=== PATIENT | male | born 1950 ===

== ENCOUNTER 2022-11-11 06:50 | Day surgery (SDC) | payer MEDICARE ==
[2022-10-29 14:31] VITALS: BP 110/65
[~2022-11-11] VITALS: Ht 172.7 cm; Wt 110.9 kg
--- NOTE | ~2022-11-11 | OR ---
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 PROCEDURE PERFORMED: Right total knee arthroplasty with Shaquille. GLOVE MAKER: Becky Regalado PA-C. ANESTHESIA: Spinal. BLOOD LOSS: 170 mL. IMPLANTS: Christy Triathlon size 5, 9 mm polyethylene and 35 mm patella. BRIEF HISTORY: Davi is a 72-year-old gentleman with progressive worsening of valgus deformity and severe pain. Risks and benefits of operative treatment were discussed with him and he elected to proceed. PROCEDURE IN DETAIL: Once consent was obtained, he was taken to the operating room after adequate anesthesia, was placed on operating room table. All downside pressure points well padded. Hip bump was placed on the right and the leg was prepped and draped in a standard sterile fashion. Knee was approached through standard anterior midline incision, carried through skin and subcutaneous tissue. A mid vastus arthrotomy was performed and the MCL was elevated as a sleeve to the posteromedial corner. The infrapatellar fat pad was excised and the anterior horns of the menisci were released. The ACL was transected. The PCL was found to be intact. The navigation computer array was then placed in the medial femoral condyle and in the proximal tibia. The leg was registered with the PATIENT NAME: DAVI KNOX OPERATIVE REPORT DATE OF : 48 REPORT #: [id number] PHYSICIAN: SIMÓN FISHER MD PCP: JERRELL CORONA DO REPORT IS CONFIDENTIAL AND NOT TO BE RELEASED WITHOUT AUTHORIZATION [facility] [address], [place] [address] Draft computer followed by the fine anatomic points of the knee. Varus valgus testing then demonstrated the ligamentous balance, which was good overall. We had to adjust the prosthesis just a touch. Once this was completed, the robot was brought in for straight cuts and two angled cuts were made with care taken to protect the patellar tendon and MCL. The bone remnants were removed as were any remaining osteophytes. The posterior osteophytes removed off the femur and meniscal remnants were removed. The trials were then positioned. Knee was taken through range of motion and found to be stable. The patella was cut, sized and drilled for a 35 mm patella. The distal femur was then drilled and the proximal tibia was finished using the keel punch. The bone was soft, so we elected to go ahead with a hybrid prosthesis. The bone was pulse lavaged and packed to the right dry Ray-Ashanti. The cement was mixed and reached proper consistency, was placed on the tibia and patella along with the corresponding bone. The tibia was impacted in position first and all excess cement was removed. The polyethylene was snapped into position and the femur was impacted. The knee was extended and nicely loaded. The patella was clamped into position again any remaining cement was removed. The clamp was left on until the cement was well set. The knee was then flexed. Any remaining overflow was removed. The knee was irrigated copiously with Surgiphor and normal saline. The periarticular soft tissue was injected with 100 mL ropivacaine Toradol mixture. The On-Q pain pump was percutaneously placed into the adductor canal from the suprapatellar pouch. The arthrotomy was then closed using a combination of #2 FiberWire and #2 Stratafix. The subcutaneous tissue was closed with 0 Stratafix, and the skin with 3-0 Stratafix. LiquiBand was applied. The wound was dressed with an Aquacel dressing, ABD and Ricky wrap. He tolerated the procedure well. All sponge, needle, and instrument counts were correct. Simón Fisher MD BA/MODL /[id number] Copies: ~ PATIENT NAME: DAVI KNOX OPERATIVE REPORT DATE OF : 48 REPORT #: [id number] PHYSICIAN: SIMÓN FISHER MD PCP: JERRELL CORONA DO REPORT IS CONFIDENTIAL AND NOT TO BE RELEASED WITHOUT AUTHORIZATION
[~2022-11-11 06:50] MED LIST: ALLEGRA-D 12 H1 EACH PO; ATORVASTATIN CA20 MG PO; BAYER CHEWABLE81 MG PO; FLOMAX0.4 MG PO; METFORMIN HCL500 MG PO; NAPROXEN CR500 MG PO; OLMESARTAN MEDO40 MG PO; VITAMIN D250000 UNIT PO
[2022-11-11 07:17] VITALS: BP 135/65
[2022-11-11] MEDS ORDERED: AFRIN15 ML NAS (07:23)
--- NOTE | 2022-11-11 09:39 | NUR ---
IN PT ROOM D/T DSAT WHEN PT FALLS ASLEEP. PT ON 95% RA, UPON FALLING ASLEEP DSAT TO 81%. PT NOW ON 4L OF O2 VIA NC. OCCASIONAL DSAT TO 84%. 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 ANNA MASON IN ROOM AT THIS TIME, NO NEW ORDERS AT THIS TIME. CALL LIGHT WITHIN REACH, SON AT BEDSIDE, CONTINUOUS PULSE OX IN PLACE. WILL CONTINUE TO MONITOR.
[2022-11-11] MEDS ORDERED: CELECOXIB200 MG PO (11:51)
[2022-11-11] MEDS ORDERED: OXYCODONE HCL5 MG PO (11:51)
[2022-11-11] MEDS ORDERED: XARELTO10 MG PO (11:51)
[2022-11-11] MEDS ORDERED: SENNA LAX8.6 MG PO (11:52)
--- NOTE | 2022-11-11 12:03 | NUR ---
11/11/22 1203 Tracie Dill 1156 PATIENT ARRIVES TO PACU RESTING WITH EYES CLOSED, OPENS EYES WITH VERBAL STIMULI, SLEEPING WHEN NOT STIMULATED. RESP EVEN AND UNLABORED, MASK AT 8 LITERS. 1202 OXYGEN MASK OFF. NC AT 4 LITERS.
[2022-11-11 12:25] VITALS: BP 113/49
--- NOTE | 2022-11-11 12:25 | NUR ---
PT ARRIVES TO UNIT VIA STRETCHER FROM PACU. REPORT RECIEVED FROM EBONIE JUSTICE. PT IS A&O X4, BOTH SONS AT BEDSIDE. PT REPORTS NO PAIN, NAUSEA, DIZZINESS, TINGLING, OR SOB. PT REPORTS NUMBNESS PRESENT IN BLE, SPINAL IS CURRENTLY AT KNEE LEVEL, AND PT IS ABLE TO MOVE LEGS/TOES. PT ARRIVES ON 4L OF O2 VIA NC, THIS RN TITRATION TO RA AND SPO2 VIA PULSE OX REMAINS AT 95%. DRESSING IS C/D/I, NO SIGNS OF BLEEDING AT THIS TIME. SKIN IS PINK/COOL/DRY W/CAP REFILL <3 SEC. ED HOSE, FOOT PUMPS, CRYO CUFF, ON-Q PUMP, AND HEEL PROTECTORS IN PLACE. PT IS TOLERATING CRACKERS, ICE WATER, AND APPLESAUCE AT THIS TIME. CALL LIGHT WITHIN REACH, NO FURTHER NEEDS AT THIS TIME.
[2022-11-11 13:19] VITALS: BP 114/45
--- NOTE | 2022-11-11 13:25 | NUR ---
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 PT IS A&O X4 W/ AND SON AT BEDSIDE. PT REPORTS NO PAIN, NAUSEA, DIZZINESS, NUMBNESS (TINGLING PRESENT IN BLE), OR SOB. PT ABLE TO MOVE TOES & LEGS W/OUT DIFFICULTY. SPINAL HAS RESOLVED AT THIS TIME. DRESSING REMAINS C/D/I, NO SIGNS OF BLEEDING AT THIS TIME. IV SITE IS WNL, 2ND DOSE OF TXA STARTED AT THIS TIME. SANDWICH HAS ARRIVED, PT IS NOW EATING W/OUT DIFFICULTY. PT O2 SATS AT 96% VIA RA. FOOT PUMPS, HEEL PROTECTORS, ED HOSE, CRYO CUFF, AND ON-Q PUMP IN PLACE. CALL LIGHT WITHIN REACH, NO FURTHER NEEDS AT THIS TIME.
--- NOTE | 2022-11-11 14:21 | NUR ---
PHYSICAL THERAPY IN ROOM WITH PT AT THIS TIME.
--- NOTE | 2022-11-11 14:27 | NUR ---
PT HAS LEFT FLOOR WITH PHYSICAL THERAPY AND 2 SONS/ ACCOMPANYING.
--- NOTE | 2022-11-11 15:02 | NUR ---
PT AMBULATING W/PHYSICAL THERAPY BACK TO UNIT. PT IN RESTROOM AND VOIDS 240 ML OF URINE AT THIS TIME. PT NOW SITTING BACK IN ROOM ON SIDE OF BED. DRESSING REMAINS C/D/I, NO SIGNS OF BLEEDING AT THIS TIME. PT STATES NO NAUSEA, DIZZINESS, SOB, N/T, OR PAIN.
--- NOTE | 2022-11-11 15:05 | NUR ---
DR. PIERSON CALLED FOR VERBAL ORDER FOR DISCHARGE. THIS RN STATES ALL CRITERIA ARE MET, VERBAL ORDER FOR DISCHARGE AND ANCEF ADMIN RECIEVED. PT DRESSED W/FAMILY ASSISTANCE. 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 IV DC'ED, WNL, CATHETER TIP INTACT, GAUZE/COBAN IN PLACE.
[2022-11-11 15:25] VITALS: BP 118/60
--- NOTE | 2022-11-11 15:25 | NUR ---
VS TAKEN, STABLE. DISCHARGE INSTRUCTIONS PROVIDED, PT AND FAMILY STATE VERBAL UNDERSTANDING AND NO FURTHER QUESTIONS. PT REFERRED FOR SLEEP STUDY AND EDUCATION MATERIAL PROVIDED D/T NON ADHERENCE TO AT HOME CPAP MACHINE AND PERIODS OF APNEA PER SURGERY PER PIE MAKER. PT TO CALL [facility] FOR FOLLOW UP APPOINTMENT. THIS RN ESCORTS PT OFF OF UNIT VIA WC, ON-Q PUMP AROUND PT SHOULDERS AND ALL BELONGINGS IN PT POSSESSION. PT TRANSFERS SELF INTO PASSENGER SIDE OF VEHICLE W/NO DIFFICULTY. NO FURTHER QUESTIONS OR NEEDS AT THIS TIME PER PT AND FAMILY.
== END 2022-11-11 15:40 | disposition home or self-care (01) ==
LOC: DS 06:50
PROVIDERS: ATTEND Specialist
DX: M17.11 Unilateral primary osteoarthritis, right knee (principal); M21.061 Valgus deformity, not elsewhere classified, right knee; E11.65 Type 2 diabetes mellitus with hyperglycemia; Z79.84 Long term (current) use of oral hypoglycemic drugs; Z79.899 Other long term (current) drug therapy
CPT/HCPCS: 01400; 64447; 64448; 64454; 76942; 97161; 97530; C1713; C1776; J0690; J1100; J1885; J2001; J2250; J2704; J2795; J7121